=== PATIENT | female | born 1990 | race Caucasian/White ===

== ENCOUNTER 2018-10-05 05:39 | Day surgery (SDC) | payer OTHER ==
[~2018-10-05] VITALS: Ht 165.1 cm; Wt 78.5 kg
[2018-10-05] MEDS ORDERED: omeprazole (06:42)
[2018-10-05 06:58] VITALS: Ht 165.1 cm; Wt 78.5 kg
== END 2018-10-05 10:00 | disposition home or self-care (01) ==
LOC: GIL 05:39
PROVIDERS: ATTEND Internal Medicine Gastroenterology
DX: R10.9 Unspecified abdominal pain (principal); Z53.9 Procedure and treatment not carried out, unspecified reason